=== PATIENT | female | born 1975 ===

== ENCOUNTER 2023-06-29 11:14 | Inpatient (IN) ==
[2023-06-29] MEDS ORDERED: IOPAMIDOL 100 ML BOTTLE IV ONE (11:15)
[2023-06-29 11:42] LABS: POC Blood Urea Nitrogen < 3 (6-20); POC Calcium, Ionized 1.02 (1.16-1.32); POC Chloride 98 (96-108); POC Creatinine 0.3 (0.6-1.2); POC Glucose, Random 78 (70-105); POC Potassium 2.5 (3.3-5.1); POC Sodium 142 (133-145)
[2023-06-29] MEDS ORDERED: POTASSIUM CHLORIDE 40 MEQ in DEXTROSE 5% IN WATER 500 ML IV ONE (12:40)
[2023-06-29] MEDS ORDERED: POTASSIUM CHLORIDE 20 MEQ TABLET PO ONE (12:40)
[2023-06-29] MEDS ORDERED: MAGNESIUM SULFATE 8.12 MEQ/2 ML VIAL IV ONE ×2 (12:41)
[2023-06-29] MEDS: MAGNESIUM SULFATE 2 GM/50 ML BAG IV ONE ×2 (13:05→14:01)
[2023-06-29 13:12] LABS: Basophils # (Auto) 0.05 K/mcL (0.00-0.30); Basophils % (Auto) 0.3 % (0.0-2.0); Eosinophils # (Auto) 0.15 K/mcL (0.00-0.70); Eosinophils % (Auto) 0.9 % (0.0-7.0); Hematocrit 27.3 % (34.1-44.9); Lymphocytes # (Auto) 2.46 K/mcL (1.50-4.80); Lymphocytes % (Auto) 14.8 % (15.5-49.0); Mean Cell Volume 95.5 fL (80.0-100.0); Mean Platelet Volume 11.2 fL (8.8-12.5); Monocytes # (Auto) 0.95 K/mcL (0.10-0.90); Monocytes % (Auto) 5.7 % (1.0-12.0); Neutrophils % (Auto) 77.8 % (38.0-78.0); Platelet Count 243 K/mcL (140-440); RBC 2.86 M/mcL (3.59-5.38); Red Cell Distribution Width 15.3 % (11.5-14.5); WBC 16.6 K/mcL (4.5-11.0)
[2023-06-29 13:39] LABS: Appearance,Urine CLOUDY (Clear); Color,Urine AMBER; Culture Indicated,Urine No; Glucose,Urine (UA) Negative (Negative); Ketones,Urine 5 mg/dL (Negative); Leukocyte Esterase,Urine 250 /uL (Negative); Mucus,Urine MANY /hpf; Nitrate,Urine Negative (Negative); Protein,Urine 100 mg/dL (Negative); Specific Gravity,Urine 1.026 (1.000-1.035); Urine Blood >=1.0 mg/dL (Negative); Urine Budding Yeast MANY /hpf; Urine Hyaline Cast 7 /lph (0-2); Urine RBC > 182 /hpf (0-1); Urine Squamous Epithelial Cell 32 /hpf (0-4); Urine Transitional Epi Cells 2 /hpf (0-2); Urine WBC > 182 /hpf (0-4); Urobilinogen,Urine Negative
[2023-06-29 13:48] LABS: ALT/SGPT 24 U/L (<40); AST/SGOT 76 U/L (<32); Albumin 2.8 gm/dL (3.2-5.2); Alkaline Phosphatase 482 U/L (39-117); Bilirubin,Direct < 0.2 mg/dL (0-0.3); Bilirubin,Total 0.6 mg/dL (0.1-1.0); Globulin 2.9 gm/dL (2.2-3.7)
[2023-06-29] MEDS ORDERED: DEXTROSE 31 GM ORAL.SUSP PO PRN (18:35)
[2023-06-29] MEDS ORDERED: IPRATROPIUM/ALBUTEROL 3 ML AMPUL.NEB NEB PRN (18:35)
[2023-06-29] MEDS ORDERED: SENNOSIDES 1 TABLET PO PRN (18:35)
[2023-06-29] MEDS ORDERED: DEXTROSE 50% 50 ML VIAL IV PRN (18:35)
[2023-06-29] MEDS ORDERED: LACTULOSE 20 GM/30 ML ORAL.SOL PO PRN (18:35)
[2023-06-29] MEDS: 0.9 % SODIUM CHLORIDE 1,000 ML IV SCH (18:40)
[2023-06-29 20:31] LABS: Hepatitis A Antibody IgM Non-Reactive (Non-Reactive); Hepatitis B Surface Antigen Negative (Negative); Hepatitis C Virus Antibody Non-Reactive (Non-Reactive)
[2023-06-29] MEDS: DOCUSATE SODIUM 100 MG CAPSULE PO SCH (20:33)
[2023-06-29] MEDS: SULFAMETHOXAZOLE/TRIMETHOPRIM 1 TABLET PO SCH ×2 (20:33→21:31)
[2023-06-29] MEDS: INSULIN LISPRO 1 UNIT/0.01 ML UNIT SQ SCH (20:46)
[2023-06-29] MEDS: 0.9 % SODIUM CHLORIDE 10 ML SYRINGE IV SCH (20:47)
[2023-06-29] MEDS ORDERED: VANCOMYCIN 125 MG CAPSULE PO SCH (21:00)
[2023-06-29] MEDS: ONDANSETRON 4 MG/2 ML VIAL IV PRN (21:30)
[2023-06-29] MEDS: FIDAXOMICIN 200 MG TABLET PO SCH (23:18)
[2023-06-30] MEDS: 0.9 % SODIUM CHLORIDE 10 ML SYRINGE IV SCH ×3 (04:09→21:22)
[2023-06-30] MEDS: 0.9 % SODIUM CHLORIDE 1,000 ML IV SCH ×4 (05:03→19:47)
[2023-06-30 06:19] LABS: Basophils # (Auto) 0.06 K/mcL (0.00-0.30); Basophils % (Auto) 0.3 % (0.0-2.0); Eosinophils # (Auto) 0.23 K/mcL (0.00-0.70); Eosinophils % (Auto) 1.3 % (0.0-7.0); Hematocrit 27.7 % (34.1-44.9); Hemoglobin 9.2 g/dL (11.2-15.7); Lymphocytes # (Auto) 1.69 K/mcL (1.50-4.80); Lymphocytes % (Auto) 9.3 % (15.5-49.0); Mean Cell Volume 95.5 fL (80.0-100.0); Mean Corpuscular HGB Conc 33.2 g/dL (31.0-36.0); Mean Platelet Volume 10.8 fL (8.8-12.5); Monocytes # (Auto) 1.13 K/mcL (0.10-0.90); Monocytes % (Auto) 6.2 % (1.0-12.0); Neutrophils % (Auto) 82.1 % (38.0-78.0); Platelet Count 254 K/mcL (140-440); Red Cell Distribution Width 15.3 % (11.5-14.5); WBC 18.1 K/mcL (4.5-11.0)
[2023-06-30 06:37] LABS: Phosphorous 3.1 mg/dL (2.5-4.5)
[2023-06-30 06:51] LABS: ALT/SGPT 22 U/L (<40); AST/SGOT 64 U/L (<32); Albumin 2.6 gm/dL (3.2-5.2); Albumin/Globulin Ratio 0.9 (1.0-2.3); Alkaline Phosphatase 484 U/L (39-117); Bilirubin,Total 0.6 mg/dL (0.1-1.0); Blood Urea Nitrogen 3 mg/dL (6-20); Calcium 7.6 mg/dL (8.6-10.4); Carbon Dioxide 26 mmol/L (22-30); Chloride 102 mmol/L (96-108); Globulin 2.8 gm/dL (2.2-3.7); Glomerular Filtration Rate 135; Glucose 71 mg/dL (70-105)
[2023-06-30] MEDS: INSULIN LISPRO 1 UNIT/0.01 ML UNIT SQ SCH ×4 (07:04→21:22)
[2023-06-30] MEDS ORDERED: MAGNESIUM SULFATE 2 GM/50 ML BAG IV ONE (07:30)
[2023-06-30] MEDS: CALCIUM CARBONATE 500 MG TAB.CHEW CHEWED SCH ×3 (07:47→17:00)
[2023-06-30] MEDS: SULFAMETHOXAZOLE/TRIMETHOPRIM 1 TABLET PO SCH ×4 (08:00→21:21)
[2023-06-30] MEDS: VITAMIN D3 25 MCG TABLET PO SCH ×2 (08:00→08:49)
[2023-06-30] MEDS: DOCUSATE SODIUM 100 MG CAPSULE PO SCH ×2 (08:50→21:21)
[2023-06-30] MEDS: FIDAXOMICIN 200 MG TABLET PO SCH (08:50)
[2023-06-30] MEDS: ENOXAPARIN 40 MG/0.4 ML SYRINGE SQ SCH (08:50)
[2023-06-30] MEDS ORDERED: MAGNESIUM SULFATE 2 GM/50 ML BAG IV SCH (09:00)
[2023-06-30] MEDS ORDERED: POTASSIUM CHLORIDE 40 MEQ in DEXTROSE 5% IN WATER 500 ML IV SCH (09:00)
[2023-06-30] MEDS: RIFAXIMIN 550 MG TABLET PO SCH ×4 (10:30→21:21)
[2023-06-30] MEDS: ONDANSETRON 4 MG/2 ML VIAL IV PRN ×2 (10:38→21:20)
[2023-06-30] MEDS ORDERED: MAGNESIUM HYDROXIDE 30 ML ORAL.SUSP PO PRN (10:52)
[2023-06-30] MEDS: METOCLOPRAMIDE 10 MG/2 ML VIAL IV PRN (14:35)
[2023-06-30] MEDS: GABAPENTIN 400 MG CAPSULE PO SCH ×3 (15:09→21:22)
[2023-06-30] MEDS ORDERED: 0.9 % SODIUM CHLORIDE 1,000 ML IV ONE (15:55)
[2023-06-30 16:39] LABS: Blood Urea Nitrogen 3 mg/dL (6-20); Calcium 8.1 mg/dL (8.6-10.4); Carbon Dioxide 21 mmol/L (22-30); Chloride 99 mmol/L (96-108); Glomerular Filtration Rate 123; Glucose 77 mg/dL (70-105)
[2023-06-30] MEDS ORDERED: traZODone HCL 50 MG TABLET PO SCH (21:00)
[2023-06-30] MEDS ORDERED: traZODone HCL 50 MG TABLET PO PRN (21:00)
[2023-06-30] MEDS: DULoxetine 30 MG CAPSULE PO SCH (21:21)
[2023-06-30] MEDS: FOLIC ACID 1 MG TABLET PO SCH (21:21)
[2023-06-30] MEDS: NYSTATIN POWDER BOTTLE 15GM TOPICAL SCH (21:23)
[2023-06-30] MEDS: FLUTICASONE HFA 110MCG INHALER INH SCH (21:58)
[2023-07-01] MEDS: METOCLOPRAMIDE 10 MG/2 ML VIAL IV PRN (00:05)
[2023-07-01] MEDS: 0.9 % SODIUM CHLORIDE 1,000 ML IV SCH ×2 (02:51→06:10)
[2023-07-01] MEDS: 0.9 % SODIUM CHLORIDE 10 ML SYRINGE IV SCH ×3 (05:21→20:00)
[2023-07-01] MEDS: INSULIN LISPRO 1 UNIT/0.01 ML UNIT SQ SCH ×4 (07:10→23:44)
[2023-07-01] MEDS: LEVOTHYROXINE 50 MCG TABLET PO SCH (07:11)
[2023-07-01 07:41] LABS: Basophils # (Auto) 0.08 K/mcL (0.00-0.30); Basophils % (Auto) 0.3 % (0.0-2.0); Eosinophils # (Auto) 0.01 K/mcL (0.00-0.70); Eosinophils % (Auto) 0 % (0.0-7.0); Hematocrit 29.4 % (34.1-44.9); Hemoglobin 9.4 g/dL (11.2-15.7); Lymphocytes # (Auto) 1.93 K/mcL (1.50-4.80); Lymphocytes % (Auto) 6.7 % (15.5-49.0); Mean Platelet Volume 11.3 fL (8.8-12.5); Monocytes % (Auto) 5.6 % (1.0-12.0); Neutrophils % (Auto) 86.7 % (38.0-78.0); Platelet Count 270 K/mcL (140-440); RBC 2.97 M/mcL (3.59-5.38); Red Cell Distribution Width 15.7 % (11.5-14.5); WBC 28.8 K/mcL (4.5-11.0)
[2023-07-01] MEDS: CALCIUM CARBONATE 500 MG TAB.CHEW CHEWED SCH ×3 (08:15→17:38)
[2023-07-01 08:20] LABS: Phosphorous 1.8 mg/dL (2.5-4.5)
[2023-07-01 08:29] LABS: ALT/SGPT 48 U/L (<40); AST/SGOT 155 U/L (<32); Albumin 2.5 gm/dL (3.2-5.2); Albumin/Globulin Ratio 0.8 (1.0-2.3); Alkaline Phosphatase 644 U/L (39-117); Bilirubin,Total 1.9 mg/dL (0.1-1.0); Blood Urea Nitrogen 2 mg/dL (6-20); Calcium 7.1 mg/dL (8.6-10.4); Carbon Dioxide 20 mmol/L (22-30); Chloride 97 mmol/L (96-108); Globulin 3.1 gm/dL (2.2-3.7); Glomerular Filtration Rate 135; Glucose 71 mg/dL (70-105)
[2023-07-01] MEDS: SULFAMETHOXAZOLE/TRIMETHOPRIM 1 TABLET PO SCH ×2 (08:42→23:31)
[2023-07-01] MEDS: DOCUSATE SODIUM 100 MG CAPSULE PO SCH ×2 (08:44→23:32)
[2023-07-01] MEDS: GABAPENTIN 400 MG CAPSULE PO SCH ×4 (08:44→23:32)
[2023-07-01] MEDS: LURASIDONE 80 MG PO SCH ×2 (08:45→10:14)
[2023-07-01] MEDS: ENOXAPARIN 40 MG/0.4 ML SYRINGE SQ SCH (08:48)
[2023-07-01] MEDS: NYSTATIN POWDER BOTTLE 15GM TOPICAL SCH (08:51)
[2023-07-01] MEDS: RIFAXIMIN 550 MG TABLET PO SCH ×3 (08:53→23:31)
[2023-07-01] MEDS: VITAMIN D3 25 MCG TABLET PO SCH (08:54)
[2023-07-01] MEDS ORDERED: OMEPRAZOLE 20 MG CAPSULE PO SCH (09:00)
[2023-07-01] MEDS ORDERED: POTASSIUM CHLORIDE 40 MEQ in DEXTROSE 5% IN WATER 500 ML IV SCH (11:00)
[2023-07-01] MEDS: FLUTICASONE HFA 110MCG INHALER INH SCH ×2 (11:25→23:33)
[2023-07-01] MEDS: DEXTROSE 5%-LR W/20MEQ KCL 1,000 ML IV SCH (13:09)
[2023-07-01 17:06] LABS: Blood Urea Nitrogen 3 mg/dL (6-20); Carbon Dioxide 14 mmol/L (22-30); Chloride 95 mmol/L (96-108); Glomerular Filtration Rate 114; Glucose 82 mg/dL (70-105)
[2023-07-01] MEDS ORDERED: POTASSIUM CHLORIDE 40 MEQ in DEXTROSE 5% IN WATER 500 ML IV ONE (17:51)
[2023-07-01] MEDS: MELOXICAM 7.5 MG TABLET PO PRN (23:30)
[2023-07-01] MEDS: DULoxetine 30 MG CAPSULE PO SCH (23:30)
[2023-07-01] MEDS: FOLIC ACID 1 MG TABLET PO SCH (23:32)
[2023-07-01] MEDS: CYCLOBENZAPRINE 10 MG TABLET PO PRN (23:52)
[2023-07-02] MEDS: NYSTATIN POWDER BOTTLE 15GM TOPICAL SCH ×3 (00:09→22:24)
[2023-07-02] MEDS: 0.9 % SODIUM CHLORIDE 10 ML SYRINGE IV SCH ×3 (07:01→22:24)
[2023-07-02] MEDS: INSULIN LISPRO 1 UNIT/0.01 ML UNIT SQ SCH ×4 (07:22→22:23)
[2023-07-02] MEDS: DEXTROSE 5%-LR W/20MEQ KCL 1,000 ML IV SCH ×3 (07:41→14:35)
[2023-07-02 07:44] LABS: Basophils # (Auto) 0.05 K/mcL (0.00-0.30); Basophils % (Auto) 0.2 % (0.0-2.0); Eosinophils # (Auto) 0.02 K/mcL (0.00-0.70); Eosinophils % (Auto) 0.1 % (0.0-7.0); Hemoglobin 8.7 g/dL (11.2-15.7); Lymphocytes # (Auto) 1.91 K/mcL (1.50-4.80); Lymphocytes % (Auto) 8.1 % (15.5-49.0); Mean Cell Volume 97.5 fL (80.0-100.0); Mean Corpuscular HGB Conc 32.2 g/dL (31.0-36.0); Mean Platelet Volume 11.1 fL (8.8-12.5); Monocytes # (Auto) 1.25 K/mcL (0.10-0.90); Monocytes % (Auto) 5.3 % (1.0-12.0); Platelet Count 270 K/mcL (140-440); RBC 2.77 M/mcL (3.59-5.38); Red Cell Distribution Width 15.7 % (11.5-14.5); WBC 23.6 K/mcL (4.5-11.0)
[2023-07-02 08:28] LABS: Phosphorous 1.6 mg/dL (2.5-4.5)
[2023-07-02 08:46] LABS: ALT/SGPT 42 U/L (<40); AST/SGOT 80 U/L (<32); Albumin 2.4 gm/dL (3.2-5.2); Albumin/Globulin Ratio 0.7 (1.0-2.3); Alkaline Phosphatase 690 U/L (39-117); Bilirubin,Total 1.2 mg/dL (0.1-1.0); Blood Urea Nitrogen 4 mg/dL (6-20); Calcium 7.4 mg/dL (8.6-10.4); Carbon Dioxide 13 mmol/L (22-30); Chloride 98 mmol/L (96-108); Globulin 3.3 gm/dL (2.2-3.7); Glomerular Filtration Rate 108; Glucose 77 mg/dL (70-105)
[2023-07-02] MEDS: ENOXAPARIN 40 MG/0.4 ML SYRINGE SQ SCH (09:07)
[2023-07-02] MEDS: LEVOTHYROXINE 50 MCG TABLET PO SCH (09:08)
[2023-07-02] MEDS: VITAMIN D3 25 MCG TABLET PO SCH (09:10)
[2023-07-02] MEDS: GABAPENTIN 400 MG CAPSULE PO SCH ×5 (09:12→22:26)
[2023-07-02] MEDS: CALCIUM CARBONATE 500 MG TAB.CHEW CHEWED SCH ×3 (09:14→16:51)
[2023-07-02] MEDS: DOCUSATE SODIUM 100 MG CAPSULE PO SCH (09:14)
[2023-07-02] MEDS: RIFAXIMIN 550 MG TABLET PO SCH ×4 (09:15→22:27)
[2023-07-02] MEDS: SULFAMETHOXAZOLE/TRIMETHOPRIM 1 TABLET PO SCH ×2 (09:53→21:54)
[2023-07-02] MEDS: FLUTICASONE HFA 110MCG INHALER INH SCH ×2 (09:54→21:55)
[2023-07-02] MEDS: LURASIDONE 40 MG PO SCH (10:17)
[2023-07-02] MEDS ORDERED: LABETALOL 5 MG/ML ML IV SCH (12:50)
[2023-07-02] MEDS ORDERED: LABETALOL 5 MG/ML ML IV ONE (13:02)
[2023-07-02] MEDS: LACTATED RINGERS 1,000 ML IV SCH (13:30)
[2023-07-02 15:22] LABS: Anisocytosis 2+ (None Seen); Band Neutrophils % 19 % (0-10); Lymphocytes % 7 % (15-49); Monocytes % (Manual) 4 % (1-12); Platelet Estimate NORMAL (Normal); RBC Morphology ABNORMAL (Normal); Segmented Neutrophils % 70 % (38-78)
[2023-07-02] MEDS: ACETAMINOPHEN 325 MG TABLET PO PRN (16:44)
[2023-07-02] MEDS: FOLIC ACID 1 MG TABLET PO SCH ×2 (21:54→22:28)
[2023-07-02] MEDS: DULoxetine 30 MG CAPSULE PO SCH ×2 (21:54→22:28)
[2023-07-03] MEDS: LACTATED RINGERS 1,000 ML IV SCH (00:58)
[2023-07-03] MEDS: DEXTROSE 5%-LR W/20MEQ KCL 1,000 ML IV SCH (03:48)
[2023-07-03] MEDS: 0.9 % SODIUM CHLORIDE 10 ML SYRINGE IV SCH ×3 (04:58→21:46)
[2023-07-03 06:24] LABS: Hematocrit 24.1 % (34.1-44.9); Mean Cell Volume 93.4 fL (80.0-100.0); Mean Corpuscular HGB Conc 33.2 g/dL (31.0-36.0); Mean Platelet Volume 11.1 fL (8.8-12.5); Platelet Count 247 K/mcL (140-440); RBC 2.58 M/mcL (3.59-5.38); Red Cell Distribution Width 15.7 % (11.5-14.5); WBC 13.9 K/mcL (4.5-11.0)
[2023-07-03 06:46] LABS: ALT/SGPT 35 U/L (<40); AST/SGOT 71 U/L (<32); Albumin 2.2 gm/dL (3.2-5.2); Albumin/Globulin Ratio 0.8 (1.0-2.3); Alkaline Phosphatase 698 U/L (39-117); Bilirubin,Direct 0.5 mg/dL (<0.3); Bilirubin,Total 0.6 mg/dL (0.1-1.0); Blood Urea Nitrogen 7 mg/dL (6-20); Calcium 7.3 mg/dL (8.6-10.4); Carbon Dioxide 17 mmol/L (22-30); Chloride 103 mmol/L (96-108); Globulin 2.8 gm/dL (2.2-3.7); Glomerular Filtration Rate 102; Glucose 87 mg/dL (70-105); Lactate Dehydrogenase 189 U/L (135-225); Phosphorous 2.1 mg/dL (2.5-4.5); Triglycerides 167 mg/dL (<150); Uric Acid 4.4 mg/dL (2.5-8.0)
[2023-07-03] MEDS: INSULIN LISPRO 1 UNIT/0.01 ML UNIT SQ SCH ×4 (07:51→21:33)
[2023-07-03] MEDS: LEVOTHYROXINE 50 MCG TABLET PO SCH (07:52)
[2023-07-03] MEDS: CALCIUM CARBONATE 500 MG TAB.CHEW CHEWED SCH ×3 (07:52→17:32)
[2023-07-03] MEDS: RIFAXIMIN 550 MG TABLET PO SCH ×3 (10:03→21:44)
[2023-07-03] MEDS: LURASIDONE 40 MG PO SCH (10:03)
[2023-07-03] MEDS: SODIUM BICARBONATE 650 MG TABLET PO SCH ×3 (10:03→21:44)
[2023-07-03] MEDS: PHOSPHORUS 250 MG TABLET PO SCH ×3 (10:03→21:43)
[2023-07-03] MEDS: VITAMIN D3 25 MCG TABLET PO SCH (10:03)
[2023-07-03] MEDS: SULFAMETHOXAZOLE/TRIMETHOPRIM 1 TABLET PO SCH ×2 (10:03→21:45)
[2023-07-03] MEDS: FLUTICASONE HFA 110MCG INHALER INH SCH ×2 (10:04→22:02)
[2023-07-03] MEDS: ENOXAPARIN 40 MG/0.4 ML SYRINGE SQ SCH (10:04)
[2023-07-03] MEDS: GABAPENTIN 400 MG CAPSULE PO SCH ×4 (10:04→21:44)
[2023-07-03] MEDS: NYSTATIN POWDER BOTTLE 15GM TOPICAL SCH ×2 (10:05→21:48)
[2023-07-03] MEDS ORDERED: ALBUMIN HUMAN 12.5 GM/50 ML VIAL IV ONE (10:41)
[2023-07-03 20:02] LABS: Anisocytosis 1+ (None Seen); Band Neutrophils % 4 % (0-10); Eosinophils % (Manual) 1 % (0-7); Lymphocytes % 12 % (15-49); Monocytes % (Manual) 2 % (1-12); Platelet Estimate NORMAL (Normal); RBC Morphology ABNORMAL (Normal); Segmented Neutrophils % 81 % (38-78)
[2023-07-03] MEDS: FOLIC ACID 1 MG TABLET PO SCH (21:44)
[2023-07-03] MEDS: DULoxetine 30 MG CAPSULE PO SCH (21:45)
[2023-07-03] MEDS: ACETAMINOPHEN 325 MG TABLET PO PRN (22:25)
[2023-07-04] MEDS: 0.9 % SODIUM CHLORIDE 10 ML SYRINGE IV SCH ×4 (04:55→20:24)
[2023-07-04] MEDS: CALCIUM CARBONATE 500 MG TAB.CHEW CHEWED SCH ×3 (07:33→17:01)
[2023-07-04] MEDS: INSULIN LISPRO 1 UNIT/0.01 ML UNIT SQ SCH ×4 (07:33→19:48)
[2023-07-04] MEDS: LEVOTHYROXINE 50 MCG TABLET PO SCH (07:34)
[2023-07-04 07:39] LABS: Basophils # (Auto) 0.03 K/mcL (0.00-0.30); Basophils % (Auto) 0.3 % (0.0-2.0); Eosinophils # (Auto) 0.11 K/mcL (0.00-0.70); Hematocrit 23.8 % (34.1-44.9); Hemoglobin 7.6 g/dL (11.2-15.7); Lymphocytes # (Auto) 2.13 K/mcL (1.50-4.80); Lymphocytes % (Auto) 20.2 % (15.5-49.0); Mean Cell Volume 98.3 fL (80.0-100.0); Mean Corpuscular HGB Conc 31.9 g/dL (31.0-36.0); Monocytes # (Auto) 0.42 K/mcL (0.10-0.90); Neutrophils % (Auto) 73.8 % (38.0-78.0); Platelet Count 241 K/mcL (140-440); RBC 2.42 M/mcL (3.59-5.38); Red Cell Distribution Width 15.9 % (11.5-14.5); WBC 10.6 K/mcL (4.5-11.0)
[2023-07-04 08:34] LABS: ALT/SGPT 39 U/L (<40); AST/SGOT 107 U/L (<32); Albumin 2.3 gm/dL (3.2-5.2); Albumin/Globulin Ratio 0.8 (1.0-2.3); Alkaline Phosphatase 703 U/L (39-117); Bilirubin,Direct 0.4 mg/dL (<0.3); Bilirubin,Total 0.6 mg/dL (0.1-1.0); Blood Urea Nitrogen 5 mg/dL (6-20); Calcium 7.7 mg/dL (8.6-10.4); Carbon Dioxide 20 mmol/L (22-30); Chloride 104 mmol/L (96-108); Globulin 2.8 gm/dL (2.2-3.7); Glomerular Filtration Rate 114; Glucose 79 mg/dL (70-105); Lactate Dehydrogenase 173 U/L (135-225); Phosphorous 2.5 mg/dL (2.5-4.5); Triglycerides 153 mg/dL (<150); Uric Acid 4.2 mg/dL (2.5-8.0)
[2023-07-04] MEDS: ENOXAPARIN 40 MG/0.4 ML SYRINGE SQ SCH (09:13)
[2023-07-04] MEDS: GABAPENTIN 400 MG CAPSULE PO SCH ×4 (09:13→20:17)
[2023-07-04] MEDS: RIFAXIMIN 550 MG TABLET PO SCH ×3 (09:13→20:18)
[2023-07-04] MEDS: LURASIDONE 40 MG PO SCH (09:14)
[2023-07-04] MEDS: SODIUM BICARBONATE 650 MG TABLET PO SCH ×3 (09:14→20:17)
[2023-07-04] MEDS: VITAMIN D3 25 MCG TABLET PO SCH (09:14)
[2023-07-04] MEDS: NYSTATIN POWDER BOTTLE 15GM TOPICAL SCH ×2 (09:15→20:24)
[2023-07-04] MEDS: FLUTICASONE HFA 110MCG INHALER INH SCH ×2 (09:15→20:24)
[2023-07-04] MEDS: SULFAMETHOXAZOLE/TRIMETHOPRIM 1 TABLET PO SCH ×2 (11:05→20:18)
[2023-07-04] MEDS: MELOXICAM 7.5 MG TABLET PO PRN (17:44)
[2023-07-04] MEDS: DULoxetine 30 MG CAPSULE PO SCH (20:17)
[2023-07-04] MEDS: FOLIC ACID 1 MG TABLET PO SCH (20:17)
[2023-07-04] MEDS: ACETAMINOPHEN 325 MG TABLET PO PRN (20:17)
[2023-07-05] MEDS: 0.9 % SODIUM CHLORIDE 10 ML SYRINGE IV SCH ×4 (05:37→22:36)
[2023-07-05] MEDS: INSULIN LISPRO 1 UNIT/0.01 ML UNIT SQ SCH ×4 (07:02→22:35)
[2023-07-05] MEDS: CALCIUM CARBONATE 500 MG TAB.CHEW CHEWED SCH ×3 (07:03→17:57)
[2023-07-05] MEDS: LEVOTHYROXINE 50 MCG TABLET PO SCH (07:03)
[2023-07-05 07:12] LABS: Basophils # (Auto) 0.04 K/mcL (0.00-0.30); Basophils % (Auto) 0.3 % (0.0-2.0); Eosinophils # (Auto) 0.21 K/mcL (0.00-0.70); Eosinophils % (Auto) 1.7 % (0.0-7.0); Hematocrit 24.6 % (34.1-44.9); Lymphocytes # (Auto) 2.25 K/mcL (1.50-4.80); Lymphocytes % (Auto) 17.8 % (15.5-49.0); Mean Cell Volume 96.9 fL (80.0-100.0); Mean Corpuscular HGB Conc 32.5 g/dL (31.0-36.0); Mean Platelet Volume 10.6 fL (8.8-12.5); Monocytes # (Auto) 0.75 K/mcL (0.10-0.90); Monocytes % (Auto) 5.9 % (1.0-12.0); Neutrophils % (Auto) 73.8 % (38.0-78.0); Platelet Count 239 K/mcL (140-440); RBC 2.54 M/mcL (3.59-5.38); Red Cell Distribution Width 15.9 % (11.5-14.5); WBC 12.7 K/mcL (4.5-11.0)
[2023-07-05 07:50] LABS: ALT/SGPT 31 U/L (<40); AST/SGOT 57 U/L (<32); Albumin 2.2 gm/dL (3.2-5.2); Albumin/Globulin Ratio 0.8 (1.0-2.3); Alkaline Phosphatase 576 U/L (39-117); Bilirubin,Direct 0.3 mg/dL (<0.3); Bilirubin,Total 0.5 mg/dL (0.1-1.0); Blood Urea Nitrogen 4 mg/dL (6-20); Calcium 8.3 mg/dL (8.6-10.4); Carbon Dioxide 21 mmol/L (22-30); Chloride 101 mmol/L (96-108); Globulin 2.7 gm/dL (2.2-3.7); Glomerular Filtration Rate 123; Glucose 87 mg/dL (70-105); Lactate Dehydrogenase 175 U/L (135-225); Phosphorous 2.2 mg/dL (2.5-4.5); Triglycerides 148 mg/dL (<150); Uric Acid 3.7 mg/dL (2.5-8.0)
[2023-07-05] MEDS ORDERED: POTASSIUM CHLORIDE 20 MEQ TABLET PO ONE (07:56)
[2023-07-05] MEDS: VITAMIN D3 25 MCG TABLET PO SCH (08:41)
[2023-07-05] MEDS: ENOXAPARIN 40 MG/0.4 ML SYRINGE SQ SCH (08:41)
[2023-07-05] MEDS: SULFAMETHOXAZOLE/TRIMETHOPRIM 1 TABLET PO SCH ×3 (08:42→22:41)
[2023-07-05] MEDS: FLUTICASONE HFA 110MCG INHALER INH SCH ×2 (08:42→22:35)
[2023-07-05] MEDS: RIFAXIMIN 550 MG TABLET PO SCH ×3 (08:42→22:33)
[2023-07-05] MEDS: LURASIDONE 40 MG PO SCH (08:42)
[2023-07-05] MEDS: NYSTATIN POWDER BOTTLE 15GM TOPICAL SCH ×2 (08:42→22:36)
[2023-07-05] MEDS ORDERED: MAGNESIUM SULFATE 2 GM/50 ML BAG IV ONE (08:42)
[2023-07-05] MEDS: GABAPENTIN 400 MG CAPSULE PO SCH ×2 (08:43→22:34)
[2023-07-05] MEDS ORDERED: POTASSIUM CHLORIDE 40 MEQ in DEXTROSE 5% IN WATER 500 ML IV ONE (09:00)
[2023-07-05] MEDS ORDERED: POTASSIUM PHOSPHATE 40 MEQ in DEXTROSE 5% IN WATER 500 ML IV ONE (09:00)
[2023-07-05] MEDS ORDERED: LACTATED RINGERS 500 ML IV ONE (10:19)
[2023-07-05] MEDS ORDERED: POTASSIUM CHLORIDE 20 MEQ in DEXTROSE 5% IN WATER 250 ML IV ONE (13:00)
[2023-07-05] MEDS: MELOXICAM 7.5 MG TABLET PO PRN (17:57)
[2023-07-05] MEDS: DULoxetine 30 MG CAPSULE PO SCH (22:33)
[2023-07-05] MEDS: CYCLOBENZAPRINE 10 MG TABLET PO PRN (22:33)
[2023-07-05] MEDS: FOLIC ACID 1 MG TABLET PO SCH (22:35)
[2023-07-06] MEDS: 0.9 % SODIUM CHLORIDE 10 ML SYRINGE IV SCH (05:53)
[2023-07-06 07:02] LABS: Basophils # (Auto) 0.05 K/mcL (0.00-0.30); Basophils % (Auto) 0.4 % (0.0-2.0); Eosinophils # (Auto) 0.22 K/mcL (0.00-0.70); Eosinophils % (Auto) 1.8 % (0.0-7.0); Hematocrit 24.5 % (34.1-44.9); Lymphocytes # (Auto) 1.89 K/mcL (1.50-4.80); Lymphocytes % (Auto) 15.2 % (15.5-49.0); Mean Cell Volume 94.6 fL (80.0-100.0); Mean Corpuscular HGB Conc 32.7 g/dL (31.0-36.0); Mean Platelet Volume 11.1 fL (8.8-12.5); Monocytes # (Auto) 0.94 K/mcL (0.10-0.90); Monocytes % (Auto) 7.6 % (1.0-12.0); Neutrophils % (Auto) 74.2 % (38.0-78.0); Platelet Count 259 K/mcL (140-440); RBC 2.59 M/mcL (3.59-5.38); Red Cell Distribution Width 15.8 % (11.5-14.5); WBC 12.4 K/mcL (4.5-11.0)
[2023-07-06 07:25] LABS: ALT/SGPT 29 U/L (<40); AST/SGOT 78 U/L (<32); Albumin/Globulin Ratio 0.7 (1.0-2.3); Alkaline Phosphatase 481 U/L (39-117); Bilirubin,Direct 0.3 mg/dL (<0.3); Bilirubin,Total 0.4 mg/dL (0.1-1.0); Blood Urea Nitrogen 3 mg/dL (6-20); Calcium 8.2 mg/dL (8.6-10.4); Carbon Dioxide 19 mmol/L (22-30); Chloride 100 mmol/L (96-108); Globulin 2.7 gm/dL (2.2-3.7); Glomerular Filtration Rate 135; Glucose 60 mg/dL (70-105); Lactate Dehydrogenase 203 U/L (135-225); Phosphorous 3.4 mg/dL (2.5-4.5); Triglycerides 123 mg/dL (<150); Uric Acid 3.6 mg/dL (2.5-8.0)
[2023-07-06] MEDS: INSULIN LISPRO 1 UNIT/0.01 ML UNIT SQ SCH ×2 (07:46→11:59)
[2023-07-06] MEDS: LEVOTHYROXINE 50 MCG TABLET PO SCH (07:52)
[2023-07-06] MEDS: CALCIUM CARBONATE 500 MG TAB.CHEW CHEWED SCH ×2 (07:52→12:01)
[2023-07-06] MEDS ORDERED: MAGNESIUM SULFATE 2 GM/50 ML BAG IV SCH (08:10)
[2023-07-06] MEDS ORDERED: SODIUM BICARBONATE 650 MG TABLET PO SCH (08:10)
[2023-07-06] MEDS ORDERED: SODIUM CHLORIDE 1 GM TABLET PO SCH (09:00)
[2023-07-06] MEDS: GABAPENTIN 400 MG CAPSULE PO SCH (09:11)
[2023-07-06] MEDS: VITAMIN D3 25 MCG TABLET PO SCH (09:12)
[2023-07-06] MEDS: RIFAXIMIN 550 MG TABLET PO SCH (09:12)
[2023-07-06] MEDS: ENOXAPARIN 40 MG/0.4 ML SYRINGE SQ SCH (09:13)
[2023-07-06] MEDS: NYSTATIN POWDER BOTTLE 15GM TOPICAL SCH (09:14)
[2023-07-06] MEDS: FLUTICASONE HFA 110MCG INHALER INH SCH (09:15)
[2023-07-06] MEDS: LURASIDONE 40 MG PO SCH (09:22)
== END 2023-07-06 11:45 | DRG 371 ==
LOC: ED 11:14 → ICU 18:15 → MEDSUR 07-01 19:25
PROVIDERS: ADMIT Internal Medicine; ATTEND Internal Medicine